=== PATIENT | female | born 1960 | race Two or more races ===

== ENCOUNTER → 2017-04-24 | Emergency (ER) | payer OTHER ==
[~2017-04-24] VITALS: Ht 162.6 cm; Wt 83.9 kg
[~2017-04-24] MED LIST: ALBUTEROL2.5 MG/3 M IH; BUDESONIDE0.5 MG/2 M IH; FORTAMET1000 MG; GLIPIZIDE10 MG; GLUCOPHAGE XR500 MG PO; IPRAT-ALBUT 0.5-3 ML IH; LANTUS SOL100 UNIT/1; LISINOPRIL10 MG PO; MOTRIN800 MG PO; PREDNISONE10 MG PO; SEPTRA DS TABLE1 TAB PO; SINGULAIR 10MG10 MG PO; SINGULAIR5 MG; SYMBICORT 16010.2 GM IH; TESSALON PERLE100 MG PO; ZITHROMAX500 MG PO; [UNRECOGNIZED DRUG - OTHER]
== END | disposition home or self-care (01) ==
LOC: ER 14:40
DX: J06.9 Acute upper respiratory infection, unspecified (principal)

== ENCOUNTER → 2017-06-27 | Emergency (ER) | payer OTHER ==
[~2017-06-27] VITALS: Ht 162.6 cm; Wt 84.4 kg
== END | disposition home or self-care (01) ==
LOC: ER 15:05
DX: R06.02 Shortness of breath (principal); E11.9 Type 2 diabetes mellitus without complications

== ENCOUNTER 2017-07-22 19:48 | Inpatient (IN) | payer OTHER ==
[~2017-07-22] VITALS: Ht 162.6 cm; Wt 81.6 kg
[2017-07-23] MEDS ORDERED: CARVEDILOL3.125 MG (10:40)
[2017-07-23] MEDS ORDERED: ASA81 MG (10:40)
[2017-07-23] MEDS ORDERED: LOSARTAN POTASS50 MG (10:41)
[2017-07-23] MEDS ORDERED: ALDACTONE25 MG (10:41)
[2017-07-23] MEDS ORDERED: LASIX20 MG (10:42)
[2017-07-23] MEDS ORDERED: GLUCOTROL10 MG (10:43)
[2017-07-23] MEDS ORDERED: PLAVIX75 MG (10:43)
[2017-07-25] MEDS ORDERED: Coreg 6.25MG TABLET PO (15:13)
[2017-07-25] MEDS ORDERED: ZOCOR20 MG PO (15:13)
[2017-07-25] MEDS ORDERED: ALDACTONE25 MG PO (15:13)
[2017-07-25] MEDS ORDERED: LOSARTAN POTASS25 MG PO (15:13)
[2017-07-25] MEDS ORDERED: CLOPIDOGREL BIS75 MG PO (15:13)
[2017-07-25] MEDS ORDERED: XOPENEX0.63 MG/3 IH (15:13)
== END 2017-07-25 23:55 | disposition home or self-care (01) | DRG 291 ==
LOC: ER 19:48 → MEDI 22:23 → ICU-2 22:23 → MEDI 22:23 → SEC-K 07-24 10:25 → MEDI 07-24 10:35
PROC: 5A09457 Assistance with Respiratory Ventilation, 24-96 Consecutive Hours, Continuous Positive Airway Pressure (ICD-10-PCS; principal; 2017-07-22)
PROC: 3E0F7GC Introduction of Other Therapeutic Substance into Respiratory Tract, Via Natural or Artificial Opening (ICD-10-PCS; 2017-07-22)
PROC: 4A033R1 Measurement of Arterial Saturation, Peripheral, Percutaneous Approach (ICD-10-PCS; 2017-07-22)
DX: I11.0 Hypertensive heart disease with heart failure (principal); J96.01 Acute respiratory failure with hypoxia; J45.41 Moderate persistent asthma with (acute) exacerbation; I50.23 Acute on chronic systolic (congestive) heart failure; Z77.29 Contact with and (suspected) exposure to other hazardous substances; E11.9 Type 2 diabetes mellitus without complications

== ENCOUNTER 2019-02-15 14:45 | Emergency (ER) | payer OTHER ==
[~2019-02-15] VITALS: Ht 160 cm; Wt 84.4 kg
[~2019-02-15 14:45] MED LIST changes: +ALDACTONE25 MG; +ALDACTONE25 MG PO; +ASA81 MG; +CARVEDILOL3.125 MG; +CLOPIDOGREL BIS75 MG PO; +Coreg 6.25MG TABLET PO; +GLUCOTROL10 MG; +LASIX20 MG; +LOSARTAN POTASS25 MG PO; +LOSARTAN POTASS50 MG; +PLAVIX75 MG; +XOPENEX0.63 MG/3 IH; +ZOCOR20 MG PO
== END 2019-02-15 17:10 | disposition home or self-care (01) ==
LOC: ER 14:45
DX: S29.011A Strain of muscle and tendon of front wall of thorax, initial encounter (principal); W18.39XA Other fall on same level, initial encounter; Y93.89 Activity, other specified; Y92.488 Other paved roadways as the place of occurrence of the external cause; Y99.8 Other external cause status